=== PATIENT | male | born 2000 | race Two or more races ===

== ENCOUNTER 2022-01-23 17:20 | Emergency (ER) | payer MEDICAID ==
[~2022-01-23] VITALS: Ht 182.9 cm; Wt 115.0 kg
[2022-01-23] MEDS ORDERED: ONDANSETRON HCL 4MG/2ML INJ IV STA (18:22)
[2022-01-23] MEDS ORDERED: SODIUM CHLORIDE 0.9% 1,000 ML IV ONE (18:30)
[2022-01-23 19:27] LABS: BASOPHILS % 0.3 % (0.0-2.0); HEMATOCRIT. 41.6 % (42.0-52.0); HEMOGLOBIN. 14.6 g/dL (14.0-18.0); LYMPHOCYTES % 9.5 % (20.0-50.0); MEAN CORPUSCULAR HEMOGLOBIN 30.1 pg (28.0-32.0); MEAN CORPUSCULAR VOLUME 85.6 fL (80.0-94.0); MONOCYTES % 2.8 % (2.0-8.0); NEUTROPHILS % 87.4 % (40.0-76.0); PLATELET 305 x1000/uL (130-400); RED BLOOD CELL COUNT 4.86 mill/uL (4.7-6.1); RED CELL DISTRIBUTION WIDTH 13.2 % (11.6-14.6)
[2022-01-23 19:35] LABS: CHLORIDE 109 mEq/L (98-107)
[2022-01-23 19:42] LABS: ETHANOL BLOOD 194 mg/dL
[2022-01-23] MEDS ORDERED: TETANUS AND DIPHTHERIA TOX/PF 0.5ML SYR (ADULT) IM ONE (21:45)
[2022-01-23 22:46] VITALS: BP 126/64
== END 2022-01-23 22:49 | disposition home or self-care (01) ==
LOC: ER 17:20
DX: S00.83XA Contusion of other part of head, initial encounter (principal); Y08.89XA Assault by other specified means, initial encounter; Y93.89 Activity, other specified; Y92.89 Other specified places as the place of occurrence of the external cause; Y99.8 Other external cause status; F10.129 Alcohol abuse with intoxication, unspecified; Y90.6 Blood alcohol level of 120-199 mg/100 ml
CPT/HCPCS: 36415; 70450; 70486; 71045; 80053; 80320; 83690; 85025; 90471; 90714; 96361; 96374; 99285; J2405; J7030; G0480